=== PATIENT | female | born 1980 | race Caucasian/White ===

== ENCOUNTER 2018-01-18 08:53 | Day surgery (SDC) | payer OTHER ==
[~2018-01-18 08:53] MED LIST: ceFAZolin 2 GM/50 ML 2 GM/50 ML BAG IV ONE
[2018-01-18] MEDS ORDERED: LACTATED RINGERS 1,000 ML IV ONE (09:25)
[2018-01-18] MEDS ORDERED: BUPIVACAINE 0.25% PF 30 ML VIAL ONE (09:52)
[2018-01-18] MEDS ORDERED: EPINEPHrine 1 MG/ML AMP ONE (09:53)
--- NOTE | 2018-01-18 10:07 | ANESTHESIA ---
Pre-Anesthesia VS, & Labs - Diagnosis Right knee cartilage lesion - Procedure Right knee scope, meniscus debridement, chondroplasty Height 5 ft 7 in Weight (kg) 69 kg - NPO >8 hours Last Fluid Intake: 0745 - Is Patient ?: Waiver signed Home Medications and Allergies Home Medications: Ambulatory Orders Cyanocobalamin (Vitamin B-12) [Vitamin B-12 (1000 mcg sublingual)] 01/10/18 Cyanocobalamin (Vitamin B-12) [Vitamin B-12 (1000 mcg sublingual)] 01/10/18 Allergies/Adverse Reactions: Allergies Allergy/AdvReac Type Severity Reaction Status Date / Time latex Allergy Intermediate Itching Verified 01/18/18 09:46 hugo wipes Allergy Itching Uncoded 01/18/18 09:47 Anes History & Medical History - Medical History Cardiovascular: reports: None Pulmonary: reports: None Gastrointestinal: reports: None Urinary: reports: None Neuro: reports: None Musculoskeletal: reports: None Endocrine/Autoimmune: reports: None Blood Disorders: reports: None Skin: reports: Other (Basal cell) Smoking Status: Never smoker Psychosocial: reports: Depression, Anxiety, Substance abuse (History of opioid abuse/substance abuse syndrome. Prefers to avoid narcotics, if possible), Cannabis - Surgical History General: Appendectomy Dermatologic: Skin cancer surgery Exam General: Alert, Oriented x3, Cooperative, No acute distress Dental: WNL Mouth Openin Fingerbreadth Mallampati classification: I Thyromental Distance: 4-6 cm Respiratory: Lungs clear, Normal breath sounds, No respiratory distress, No accessory muscle use Cardiovascular: Regular rate, Normal S1, Normal S2, No murmurs Mental/Cognitive Status: Alert/Oriented X3, Normal for patient Cognitive Status: Within normal limits Plan Anesthesia Type: General Consent for Procedure(s) Verified and Reviewed: Yes Code Status: Attempt Resuscitation ASA classification: 2-Mild systemic disease Is this case an emergency?: No
[2018-01-18] MEDS ORDERED: CELECOXIB 100 MG CAPSULE PO ONE (10:23)
[2018-01-18] MEDS ORDERED: GABAPENTIN 400 MG CAPSULE ONE (10:24)
[2018-01-18] MEDS ORDERED: ACETAMINOPHEN 325 MG TABLET PO ONE (10:24)
[2018-01-18] MEDS ORDERED: BUPIVACAINE 0.25% PF 30 ML VIAL SUBQ ONE (11:08)
[2018-01-18] MEDS ORDERED: ONDANSETRON 4 MG/2 ML VIAL IVP PRN (11:58)
[2018-01-18] MEDS ORDERED: oxyCODONE 5 MG TABLET PO PRN (11:58)
--- NOTE | 2018-01-18 12:05 | OPERATIVE REPORT ---
Operative Report - General Procedure Date: 01/18/18 Planned Procedure: Right knee arthroscopy with meniscus debridement and chondroplasty Pre-Op Diagnosis: Right knee meniscus tear and cartilage lesion Procedure Performed: Right knee arthroscopic trochlear chondroplasty, patellar chondroplasty, loose body removal, medial femoral condyle chondroplasty, medial meniscus debridement Post Op Diagnosis: Same as above - Procedure Note Primary Surgeon: Crow Frankel Secondary Surgeon: Mykel Hickey Estimated Blood Loss (mL): 5 Complications: None - Other Other Information/Narrative: Tourniquet Time: 46 Minutes Indication For Surgery: 37-year-old female with long-standing knee pain who recently started having mechanical symptoms and intermittent effusions after a volleyball tournament a few months ago. Symptoms did not improve with nonoperative treatment and extensive physical therapy and she desired surgical management. The risks, benefits, and alternatives were discussed. Risks include pain, bleeding, infection, damage to nearby structures and cartilage, lack of symptom relief, need for further surgery, DVT, PE, stroke, and . Written consent was obtained. Examination Under Anesthesia: ROM equal to the contralateral side. Stable dial at 30 & 90 degrees. Stable to varus and valgus stressing at 0 & 30 degrees. Stable Avtar. Normal Pivot shift. Diagnostic Arthroscopy: A 6mm x 6mm loose body Was found under the root of the lateral meniscus and was removed. Synovium Hypertrophic. Patella cartilage had a focal defect centrally that was debrided to a stable base. Trochlear cartilage had a 10mm wide by 20mm long full thickness cartilage lesion that was debrided to a stable base with biters and zina. Medial femoral condyle cartilage had a 10mm wide by 24mm long full thickness cartilage lesion whose edges were debrided to a stable base. Medial tibial plateau cartilage grade 2/3 changes diffusely. Medial meniscus free edge tearing that was debrided to a stable base with a biter and shaver. ACL was intact. PCL was intact. Lateral femoral condyle cartilage 10mm wide by 5mm long partial thickness cartilage lesion. Lateral tibial plateau cartilage diffuse grade 2/3 changes. Lateral meniscus intact. Procedure in Detail: The patient was met in the pre-operative hold area on the day of the procedure. The operative extremity was signed and questions were answered. The patient was brought to the operating room and a general anesthetic was administered. Supine position was used and bony prominences were padded. An examination under anesthesia was performed. Standard prepping and draping was performed. A time out confirmed patient identification, laterality, procedure, allergies, antibiotics, and images. A standard diagnostic arthroscopy of the knee was performed through anterolateral and anteromedial portal sites. The anteromedial portal was created under direct visualization after localizing with a spinal needle. The findings can be found above. I then proceeded to Use a straight grasper to pull out the loose body that was found under the lateral meniscus. I then proceeded using a Gillquist maneuver to look in the posterior medial and posterior lateral knee and did not find any further loose bodies. I then debrided the trochlear cartilage lesion back to a stable base with a biter and sucker shaver. I then debrided the medial femoral condyle cartilage lesion to a stable base with a biter and sucker shaver. I then used a biter and sucker shaver to debride the medial meniscus tear. I also used a shaver to debride the patella. Fat pad was debrided as needed for visualization. Final images were taken and all arthroscopic fluid and instruments were removed from the knee. The incisions were closed with buried monocryl sutures. Steri strips were applied. 30 cc of 0.25% Marcaine without epinephrine was injected near the portal sites and joint. A sterile dressing and compression stocking was placed. The patient was awakened and transferred to recovery in stable condition.
[2018-01-18] MEDS ORDERED: ONDANSETRON 4 MG/2 ML VIAL ONE (13:06)
[2018-01-18] MEDS: LORazepam 2 MG/ML VIAL ONE ×2 (13:32→14:00)
[2018-01-18 15:09] VITALS: BP 122/68
== END 2018-01-18 08:54 | disposition home or self-care (01) ==
LOC: SDS 08:53
PROVIDERS: ATTEND Orthopaedic Surgery
PROC: 0SBC4ZZ Excision of Right Knee Joint, Percutaneous Endoscopic Approach (ICD-10-PCS; principal; 2018-01-18 10:45)
DX: M23.203 Derangement of unspecified medial meniscus due to old tear or injury, right knee (principal); M22.41 Chondromalacia patellae, right knee; M23.41 Loose body in knee, right knee; M17.11 Unilateral primary osteoarthritis, right knee; Z85.828 Personal history of other malignant neoplasm of skin; Z72.89 Other problems related to lifestyle; F11.11 Opioid abuse, in remission
CPT/HCPCS: 29881; A9270; J0690; J2060; J7120